=== PATIENT | male | born 1980 | race Hispanic/Latino ===

== ENCOUNTER 2023-07-12 12:21 | Emergency (ER) | payer OTHER ==
[~2023-07-12] VITALS: Ht 165.1 cm; Wt 95.3 kg
[2023-07-12 12:22] VITALS: BP 128/85; PULSE 89; RESP 16
[2023-07-12 12:45] LABS: SARS-CoV-2, RNA, NAAT NEGATIVE SARS CoV-2 (NEGATIVE)
[2023-07-12 12:49] LABS: INFLUENZA TYPE A Negative For Type A (NEGATIVE); INFLUENZA TYPE B Negative For Type B (NEGATIVE)
[2023-07-12] MEDS ORDERED: GUAI200T5 PO (14:27)
[2023-07-12] MEDS ORDERED: IBUP-2070 PO (14:27)
== END 2023-07-12 14:35 | disposition home or self-care (01) ==
LOC: EDH 12:21
DX: B34.9 Viral infection, unspecified (principal); H92.02 Otalgia, left ear; F32.A Depression, unspecified; F17.200 Nicotine dependence, unspecified, uncomplicated; Z20.822 Contact with and (suspected) exposure to COVID-19
CPT/HCPCS: 99283; 87635; 87804 ×2; C9803

== ENCOUNTER 2023-07-20 07:30 | Emergency (ER) | payer OTHER ==
[~2023-07-20] VITALS: Ht 172.7 cm; Wt 95.3 kg
[~2023-07-20 07:30] MED LIST: GUAI200T5 PO; IBUP-2070 PO
[2023-07-20 07:31] VITALS: BP 137/84; PULSE 99; RESP 18
[2023-07-20 08:54] LABS: SARS-CoV-2, RNA, NAAT NEGATIVE SARS CoV-2 (NEGATIVE)
[2023-07-20 08:59] LABS: INFLUENZA TYPE A Negative For Type A (NEGATIVE); INFLUENZA TYPE B Negative For Type B (NEGATIVE)
[2023-07-20 09:16] LABS: RAPID GROUP A STREP positive (NEGATIVE)
[2023-07-20] MEDS ORDERED: IBUPROFEN 800 MG TAB PO ONE (09:30)
[2023-07-20] MEDS ORDERED: PENICILLIN G BENZATHINE LA 1.2 MILUNITS/2 ML SYG IM ONE (10:00)
[2023-07-20] MEDS ORDERED: PENICILLIN G POTASSIUM 5,000,000 UNIT VIAL IM ONE (10:30)
== END 2023-07-20 10:45 | disposition home or self-care (01) ==
LOC: EDH 07:30
DX: J02.0 Streptococcal pharyngitis (principal); F43.10 Post-traumatic stress disorder, unspecified; E27.9 Disorder of adrenal gland, unspecified; F32.A Depression, unspecified; Z20.822 Contact with and (suspected) exposure to COVID-19; X58.XXXA Exposure to other specified factors, initial encounter; Y93.89 Activity, other specified; Y92.89 Other specified places as the place of occurrence of the external cause; Y99.8 Other external cause status
CPT/HCPCS: 99283; 87635; 87880; 87804 ×2; 96372; C9803; J2540

== ENCOUNTER 2023-07-25 18:21 | Emergency (ER) | payer OTHER | END 2023-07-25 19:21 | disposition left against medical advice (07) | LOC: EDH 18:21 | DX: K92.0 Hematemesis (principal); Z53.21 Procedure and treatment not carried out due to patient leaving prior to being seen by health care provider ==

== ENCOUNTER 2024-11-22 23:11 | Emergency (ER) | payer OTHER ==
[~2024-11-22] VITALS: Ht 172.7 cm; Wt 110.7 kg
--- NOTE | 2024-11-22 23:57 | NUR ---
PATIENT STATES HX OF OBSTRUCTIVE SLEEP APNEA, DOES NOT USE CPAP DUE TO NOT USED TO IT.
[2024-11-23 00:42] LABS: BASOPHILS # (AUTO) 0.03 K/uL (0.00-0.20); BASOPHILS % (AUTO) 0.4 % (0.0-5.0); EOSINOPHILS # (AUTO) 0.17 K/uL (0.00-0.70); EOSINOPHILS % (AUTO) 2.1 % (0.0-8.0); HEMATOCRIT 36.8 % (42-54); IMMATURE GRANULOCYTE ABSOLUTE 0.03 K/uL (0-1); LYMPHOCYTES % (AUTO) 24.3 % (21.0-51.0); MEAN CORPUSCULAR HGB CONC 35.1 g/dL (32.0-36.0); MEAN CORPUSCULAR VOLUME 82.7 fL (79-99); MONOCYTES # (AUTO) 0.6 K/uL (0.1-1.0); MONOCYTES % (AUTO) 6.9 % (3.0-13.0); NEUTROPHILS # (AUTO) 5.4 K/uL (1.8-7.7); NEUTROPHILS % (AUTO) 65.9 % (40.0-77.0); PLATELET COUNT (AUTO) 252 K/uL (130-400); RED BLOOD CELL COUNT(AUTO) 4.45 MIL/uL (4.50-6.20); RED CELL DISTRIBUTION WIDTH 13.4 % (11.0-15.5); WHITE BLOOD COUNT (AUTO) 8.1 K/uL (4.8-10.8)
[2024-11-23 00:51] LABS: POTASSIUM 3.2 mmol/L (3.5-5.1)
[2024-11-23] MEDS: ketOROlac 30MG VIAL (30MG/ML) IVP ONE (00:54)
[2024-11-23] MEDS: MAG/ALUM/SIMETH 30 ML UDCUP PO ONE (00:54)
[2024-11-23] MEDS: LIDOCAINE HCL 2% VISCOUS 15 ML UDCUP PO ONE (00:54)
[2024-11-23 00:55] LABS: ALBUMIN 3.4 g/dL (3.5-5.0); BILIRUBIN,TOTAL 0.3 mg/dL (0.2-1.0); TOTAL PROTEIN, SERUM 6.9 g/dL (6.0-8.3)
--- NOTE | 2024-11-23 01:04 | ERN ---
ED Note History of Present Illness Stated Complaint: C/O SOB, UNABLE TO SWALLOW Chief Complaint: Foreign Body Time Seen by MD: 23:32 Time Seen by Midlevel: 23:32 Dictation: 44-year-old male who presents to the emergency department due to reported having a dyspepsia type of sensation that began today at 9:00 p.m.. He states that he does have a history of gastroesophageal reflux disease and is not quite sure whether or not this might be related to it. At this time, he denies having any chest pain, chest pressure or shortness of breath. Patient states that he does have a history of PTSD and anxiety and believes that this is triggering those 2. Upon initial evaluation, the patient presents in no acute distress. Allergies: Coded Allergies: No Known Allergies (Unverified Allergy, Unknown, 07/12/23) Home Meds Active Scripts Ibuprofen (Ibuprofen) 600 Mg Tablet, 600 MG PO Q6H PRN for PAIN, #12 TAB 0 Refills Prov:RAYMOND OCONNOR NP 07/12/23 Guaifenesin (Guaifenesin) 200 Mg Tablet, 200 MG PO BID for congestion, #12 TAB 0 Refills Prov:RAYMOND OCONNOR NP 07/12/23 Past Medical History Past Medical History: Anxiety, Diabetes-Type II, High Cholesterol, Hypertension Additional Past Medical Hx: PTSD Surgical History: None PSYCH History: anxiety, post traumatic stress Social History: Smokers, Lives with family RN Note Reviewed/Agreed w/PFSH: Yes Review of System Dictation See HPI. Initial Vital Sign VS Vital Signs Date Time Temp Pulse Resp B/P (MAP) Pulse Ox O2 Delivery O2 Flow Rate FiO2 11/22/24 23:14 97.2 77 20 122/81 95 Room Air 11/22/24 23:55 0 21 Physical Exam Dictation General: awake, alert, NAD Head/Face: Normocephalic, atraumatic Eyes: PERRL, EOMI ENT: Oral mucosa moist Neck: Trachea midline, supple Cardiovascular: RRR, no edema Respiratory: Symmetrical, non-labored Abdomen: Soft, non-tender, non-distended, no guarding. Skin: Warm, dry, good turgor, no rash MS/Extremity: Pulses equal, no cyanosis, neurovascular intact, FROM Neuro: COAx4, GCS 15, steady gait, Psych: Normal behavior, mood, and affect normal Results (Laboratory/Radiology) Laboratory/Radiology Laboratory Tests Test 11/22/24 23:54 White Blood Count 8.1 K/uL (4.8-10.8) Red Blood Count 4.45 MIL/uL (4.50-6.20) L Hemoglobin 12.9 g/dL (14.0-18.0) L Hematocrit 36.8 % (42-54) L Mean Corpuscular Volume 82.7 fL (79-99) Mean Corpuscular Hemoglobin 29.0 pg (27.0-33.0) Mean Corpuscular Hemoglobin Concent 35.1 g/dL (32.0-36.0) Red Cell Distribution Width 13.4 % (11.0-15.5) Platelet Count 252 K/uL (130-400) Mean Platelet Volume 10.8 fL (7.5-10.5) H Immature Granulocyte % (Auto) 0.4 % (0-1) Neutrophils (%) (Auto) 65.9 % (40.0-77.0) Lymphocytes (%) (Auto) 24.3 % (21.0-51.0) Monocytes (%) (Auto) 6.9 % (3.0-13.0) Eosinophils (%) (Auto) 2.1 % (0.0-8.0) Basophils (%) (Auto) 0.4 % (0.0-5.0) Neutrophils # (Auto) 5.4 K/uL (1.8-7.7) Lymphocytes # (Auto) 2.0 K/uL (1.0-4.8) Monocytes # (Auto) 0.6 K/uL (0.1-1.0) Eosinophils # (Auto) 0.17 K/uL (0.00-0.70) Basophils # (Auto) 0.03 K/uL (0.00-0.20) Absolute Immature Granulocyte (auto 0.03 K/uL (0-1) Nucleated Red Blood Cells 0.0 % (0.0-0.19) Sodium Level 141 mmol/L (136-145) Potassium Level 3.2 mmol/L (3.5-5.1) L Chloride Level 104 mmol/L (101-111) Carbon Dioxide Level 28 mmol/L (21-32) Blood Urea Nitrogen 8 mg/dL (7-18) Creatinine 1.0 mg/dL (0.5-1.3) Glomerular Filtration Rate Calc 95 mL/min (>90) Random Glucose 177 mg/dL (70-105) H Total Calcium 8.4 mg/dL (8.5-10.1) L Total Bilirubin 0.3 mg/dL (0.2-1.0) Aspartate Amino Transf (AST/SGOT) 20 U/L (10-37) Alanine Aminotransferase (ALT/SGPT) 31 U/L (12-78) Alkaline Phosphatase 105 U/L (50-136) Troponin I High Sensitivity 6 ng/L (4-75) Total Protein 6.9 g/dL (6.0-8.3) Albumin 3.4 g/dL (3.5-5.0) L Labs Reviewed?: Yes EKG Comment: EKG done 11/22/2024 at 11:27 p.m. Ventricular rate 69 beats per minute VT 189 MS QRS 100 MS QT 427 MS No STEMI. ED Course ED Course Orders Procedure Category Date Status Time Troponin I High LAB 11/22/24 Complete Sensitivity 23:36 Cbc With Differential LAB 11/22/24 Complete 23:36 Comprehensive LAB 11/22/24 Complete Metabolic Panel 23:36 12 Lead Ekg Tracing- EKG 11/22/24 Logged Technical 23:36 Chest 2vws RAD 11/22/24 Taken 23:36 Ketorolac PHA 11/23/24 Complete Tromethamine 30mg/Ml 01:00 Mag/Alum/Simeth 30ml PHA 11/23/24 Complete (Maalox Plus 30ml) 01:00 Lidocaine Hcl 2% PHA 11/23/24 Complete Viscous (Lidocaine Hcl 01:00 Potassium Bicarb/Cit PHA 11/23/24 Complete Ac 25meq (K-Lyte Ta 01:00 Current Medications Medications (Trade) Dose Ordered Sig/Claudia Route PRN Reason Start Time Stop Time Status Last Admin Dose Admin Al Hydroxide/Mg Hydroxide (MAALox PLUS 30ML) 30 ml ONCE ONCE PO 11/23/24 01:00 11/23/24 01:01 DC 11/23/24 00:54 Ketorolac Tromethamine (toRADol) 30 mg ONCE ONCE IVP 11/23/24 01:00 11/23/24 01:01 DC 11/23/24 00:54 Lidocaine HCl (Lidocaine HCl 2% Viscous) 10 ml ONCE ONCE PO 11/23/24 01:00 11/23/24 01:01 DC 11/23/24 00:54 Potassium Bicarbonate (K-Lyte Tablet Eff 25 Meq Tablet.eff) 25 meq ONCE ONCE PO 11/23/24 01:00 11/23/24 01:01 DC Vital Signs Date Time Temp Pulse Resp B/P (MAP) Pulse Ox O2 Delivery O2 Flow Rate FiO2 11/22/24 23:55 78 18 118/78 98 Room Air* 0 21 11/22/24 23:14 97.2 77 20 122/81 95 Room Air HEART Score Response (Comments) Value History: Low suspicion (0) 0 EKG: Normal 0 Age: < 45yrs (0) 0 Risk Factors: 1-2 risk factors (+1) 1 Initial Troponin: Normal limit (0) 0 HEART Score Risk: Low Risk for MACE (1-3) Total 1 Medical Decision Making MDM MDM: Differential diagnosis: Dyspepsia, GERD, gastritis. Rationale: Tests considered and ordered secondary to shared decision making include: Previous outside records reviewed: Old ER visits. Risk of complication and/or morbidity or mortality of patient management: None Medications-Per medication reconciliation Need for hospitalization: Patient does not meet criteria for hospitalization. Need for emergency major/minor surgery: No There are no social concerns with this patient. Prescription drug management Prescriptions will include symptomatic care Patient's prior external medical records from other ER visits were reviewed by me as indicated. Prior testing and results from previous visits were reviewed. Prior tests were taken into account with medical decision making and resource utilization, independent historian/historians were used to obtain complete medical history. I independently interpreted the test that were performed, results were reviewed by me and considered findings on radiology if ordered. Medical management and examination interpretation discussions were had by me with other qualified healthcare professionals as indicated for the patient's care. DX & DISP Disposition: Discharge Departure Impression: Primary Impression: Dyspepsia Additional Impressions: Acute hypokalemia, History of gastroesophageal reflux (GERD) Condition: Stable Referrals: SELF,REFERRAL (PCP) Time of Disposition: 01:07 EMILIA BULLARD Nov 23, 2024 01:04
[2024-11-23] MEDS: PoTASSium BIcarbonate/CIT AC 25 MEQ TABLET.EFF PO ONE (01:16)
[2024-11-23 01:24] VITALS: BP 118/70; PULSE 70; RESP 18; TEMP 98.2; O2SAT 98
--- NOTE | 2024-11-23 01:40 | HMCIMG ---
CHEST 2VWS HISTORY: Pain COMPARISON: None FINDINGS: Frontal and lateral projections of the chest were obtained. There is no acute pulmonary infiltrates or failure. The heart is not enlarged. No evidence of aortic calcification is seen. Prominent interstitial markings are seen. IMPRESSION: 1. No acute pulmonary infiltrates.
--- NOTE | 2024-11-23 06:30 | EKG ---
[facility] Test Date: 2024-11-22 Test Time: 23:37:37 Pat Name: GOSIA VELARDE Department: ED Room: Gender: Options Advisor: [facility] : 1980 Requested By: EMILIA BULLARD Order Number: [id number] Reading MD: Taylor Ramsay Measurements Intervals [place] Rate: 69 P: 38 IN: 189 QRS: 269 QRSD: 100 T: 30 QT: 427 QTc: 457 Interpretive Statements Sinus rhythm Left anterior fascicular block No previous ECG available for comparison Electronically Signed On 11-23-2024 08:05:01 INFECTION CONTROL COORDINATOR by Taylor Ramsay Please click the below link to view image of tracing.
== END 2024-11-23 01:26 | disposition home or self-care (01) ==
LOC: EDH 23:11
DX: K21.9 Gastro-esophageal reflux disease without esophagitis (principal); R10.13 Epigastric pain; E87.6 Hypokalemia; E11.9 Type 2 diabetes mellitus without complications; E78.00 Pure hypercholesterolemia, unspecified; F17.200 Nicotine dependence, unspecified, uncomplicated; I10 Essential (primary) hypertension
CPT/HCPCS: 99285; 71046; 84484; 80053; 85025; 36415; 93005; 96374; J1885

== ENCOUNTER → 2024-11-29 | Emergency (ER) | payer OTHER ==
[~2024-11-29] VITALS: Ht 172.7 cm; Wt 110.7 kg
[2024-11-29 23:38] VITALS: BP 134/94; PULSE 76; RESP 20; TEMP 96.6
--- NOTE | 2024-11-29 23:51 | ERN ---
ED Note History of Present Illness Stated Complaint: C/O "SOMETHING STUCK" IN THROAT Chief Complaint: Foreign Body Time Seen by MD: 23:42 Dictation: Patient left without being seen Allergies: Coded Allergies: No Known Allergies (Unverified Allergy, Unknown, 07/12/23) Home Meds Active Scripts Ibuprofen (Ibuprofen) 600 Mg Tablet, 600 MG PO Q6H PRN for PAIN, #12 TAB 0 Refills Prov:RAYMOND OCONNOR METAL MOVER 07/12/23 Guaifenesin (Guaifenesin) 200 Mg Tablet, 200 MG PO BID for congestion, #12 TAB 0 Refills Prov:RAYMOND OCONNOR METAL MOVER 07/12/23 Past Medical History Past Medical History: GERD Additional Past Medical Hx: GERD; PTSD Surgical History: None Social History: Smokers, Lives with family RN Note Reviewed/Agreed w/PFSH: Yes Review of System Dictation Left without being seen unobtainable Initial Vital Sign VS Vital Signs Date Time Temp Pulse Resp B/P (MAP) Pulse Ox O2 Delivery O2 Flow Rate FiO2 11/29/24 23:38 96.6 76 20 134/94 96 Room Air Physical Exam Dictation Unable to examine Results (Laboratory/Radiology) Labs Reviewed?: Yes ED Course ED Course Vital Signs Date Time Temp Pulse Resp B/P (MAP) Pulse Ox O2 Delivery O2 Flow Rate FiO2 11/29/24 23:38 96.6 76 20 134/94 96 Room Air We will perform diagnostic labs, imaging and administer medications according to the patient's complaint. Once the results are available, will review and personally interpreted the labs to rule out any acute life-threatening emergency the trach require immediate intervention and treatment. I will then re-evaluate the patient after treatment and diagnostic exams have return to determine whether the patient requires any further testing, can safely be discharged home or need further admission to hospital for additional treatment and evaluation. Medical Decision Making MDM Patient left without being seen Problem List Problem List: (1) History of gastroesophageal reflux (GERD) (2) Dyspepsia DX & DISP Disposition: Other(Comment) (Patient left without being seen) Departure Impression: Primary Impression: History of gastroesophageal reflux (GERD) Additional Impression: Dyspepsia Condition: Stable Additional Instructions: Left without being seen Referrals: SELF,REFERRAL (PCP) JOVON ANDERSEN MD Nov 29, 2024 23:51
--- NOTE | 2024-11-30 01:47 | NUR ---
CALLED FOR PT TO MOVE TO [facility]; NO RESPONSE; PT NOT FOUND IN LOBBY.
== END | disposition left against medical advice (07) ==
LOC: EDH 23:36
DX: R10.13 Epigastric pain (principal); K21.9 Gastro-esophageal reflux disease without esophagitis; F17.200 Nicotine dependence, unspecified, uncomplicated; Z53.21 Procedure and treatment not carried out due to patient leaving prior to being seen by health care provider